=== PATIENT | male | born 1955 | race Caucasian/White ===

== ENCOUNTER 2017-01-12 11:24 | Emergency (ER) | payer MEDICAID ==
[~2017-01-12] VITALS: Ht 175.3 cm; Wt 60.0 kg
[~2017-01-12 11:24] MED LIST: CLON-365 PO; CLON2TAB16 PO; ENAL10TA PO; GABA800T2 PO; METO-99 PO; NICO1PAT4 TD
[2017-01-12] MEDS ORDERED: SODIUM CHLORIDE FLUSH 10ML SYR IVF ONE (12:00)
[2017-01-12] MEDS ORDERED: SODIUM CHLORIDE 0.9% 1,000ML IVBOLUS ONE (12:00)
[2017-01-12] MEDS ORDERED: LORazepam 2 MG/ML, 1ML IVPush ONE (12:00)
[2017-01-12 12:44] VITALS: BP 125/68
== END 2017-01-12 12:47 | disposition home or self-care (01) ==
LOC: ED 12:35
DX: K40.90 Unilateral inguinal hernia, without obstruction or gangrene, not specified as recurrent (principal); I10 Essential (primary) hypertension; F31.9 Bipolar disorder, unspecified; F41.9 Anxiety disorder, unspecified
CPT/HCPCS: 99283

== ENCOUNTER 2017-02-18 10:38 | Emergency (ER) | payer MEDICAID ==
[2017-02-18] MEDS ORDERED: ASPIRIN 81 MG TABLET CHEW PO ONE (11:30)
[2017-02-18] MEDS ORDERED: ASPIRIN 81 MG TABLET CHEW ONE (11:32)
[2017-02-18 12:12] LABS: BLOOD UREA NITROGEN 19 mg/dL (7-18)
[2017-02-18 12:16] LABS: IS PT STATUS REG ER OR PRE ER? YES
[2017-02-18 12:28] VITALS: BP 144/88
== END 2017-02-18 13:14 | disposition home or self-care (01) ==
LOC: ED 12:19
DX: R07.89 Other chest pain (principal); F41.1 Generalized anxiety disorder; M25.512 Pain in left shoulder; G89.29 Other chronic pain; I10 Essential (primary) hypertension; N19 Unspecified kidney failure; K75.9 Inflammatory liver disease, unspecified
CPT/HCPCS: 36415; 71010; 80048; 82040; 84484; 85025; 93005; 99285

== ENCOUNTER 2017-02-27 22:53 | Emergency (ER) | payer MEDICAID ==
[~2017-02-27] VITALS: Ht 175.3 cm; Wt 58.8 kg
[2017-02-27 23:51] LABS: HEMATOCRIT 38.5 % (39.2-51.8); HEMOGLOBIN 12.9 g/dL (13.7-18.0); WHITE BLOOD COUNT 8.2 x10^3/uL (3.4-10)
[2017-02-28 00:01] LABS: BLOOD UREA NITROGEN 21 mg/dL (7-18)
[2017-02-28] MEDS ORDERED: IBUPROFEN 200 MG TABLET PO ONE (02:00)
[2017-02-28] MEDS ORDERED: IBUPROFEN 200 MG TABLET ONE (02:03)
[2017-02-28 02:23] VITALS: BP 129/87
== END 2017-02-28 02:24 | disposition home or self-care (01) ==
LOC: ED 23:10
DX: S70.02XA Contusion of left hip, initial encounter (principal); I10 Essential (primary) hypertension; M25.512 Pain in left shoulder; G89.29 Other chronic pain; F15.10 Other stimulant abuse, uncomplicated; Z59.0 Homelessness; W01.0XXA Fall on same level from slipping, tripping and stumbling without subsequent striking against object, initial encounter; Y93.89 Activity, other specified; Y99.8 Other external cause status; Y92.89 Other specified places as the place of occurrence of the external cause
CPT/HCPCS: 36415; 70450; 71010; 72125; 80048; 80307; 82040; 82140; 85025; 99285

== ENCOUNTER 2017-03-02 10:01 | Emergency (ER) | payer MEDICAID ==
[~2017-03-02] VITALS: Ht 175.3 cm; Wt 58.2 kg
[2017-03-02 10:02] VITALS: BP 149/79
[2017-03-02 10:54] LABS: HEMATOCRIT 44.4 % (39.2-51.8); HEMOGLOBIN 14.9 g/dL (13.7-18.0); WHITE BLOOD COUNT 7.4 x10^3/uL (3.4-10)
[2017-03-02 11:04] LABS: BLOOD UREA NITROGEN 19 mg/dL (7-18)
[2017-03-02] MEDS ORDERED: NAPR500T PO (11:11)
== END 2017-03-02 11:18 | disposition home or self-care (01) ==
LOC: ED 11:12
DX: T63.301A Toxic effect of unspecified spider venom, accidental (unintentional), initial encounter (principal); L03.90 Cellulitis, unspecified; S50.812A Abrasion of left forearm, initial encounter; S50.811A Abrasion of right forearm, initial encounter; S80.212A Abrasion, left knee, initial encounter; S80.211A Abrasion, right knee, initial encounter; I10 Essential (primary) hypertension; G89.29 Other chronic pain; M54.2 Cervicalgia; M54.5 Low back pain; Y92.89 Other specified places as the place of occurrence of the external cause; Y99.8 Other external cause status; Y93.89 Activity, other specified
CPT/HCPCS: 36415; 80048; 82040; 85025; 99284

== ENCOUNTER 2017-03-25 08:49 | Emergency (ER) | payer MEDICAID ==
[~2017-03-25] VITALS: Ht 175.3 cm; Wt 59.0 kg
[~2017-03-25 08:49] MED LIST changes: +NAPR500T PO; +NICO1PAT13 TD; -NICO1PAT4 TD
[2017-03-25] MEDS ORDERED: DIPH,PERTUSS(ACELL),TET VAC/PF 0.5 ML IM-VACC ONE ×2 (09:30→10:05)
[2017-03-25] MEDS ORDERED: CEFAZOLIN PMX 1GM/50ML 50 ML IVPB ONE (09:30)
[2017-03-25] MEDS ORDERED: KETOROLAC 30 MG/1 ML IVPush ONE (09:30)
[2017-03-25] MEDS ORDERED: SODIUM CHLORIDE 0.9% 1,000ML IVBOLUS ONE (09:30)
[2017-03-25] MEDS ORDERED: SODIUM CHLORIDE FLUSH 10ML SYR IVF ONE (09:30)
[2017-03-25] MEDS ORDERED: KETOROLAC 30 MG/1 ML ONE (10:05)
[2017-03-25] MEDS ORDERED: CEFAZOLIN PMX 1GM/50ML 50 ML ONE (10:05)
[2017-03-25 11:54] VITALS: BP 109/71
== END 2017-03-25 12:05 | disposition home or self-care (01) ==
LOC: ED 09:21
DX: L03.115 Cellulitis of right lower limb (principal); L03.116 Cellulitis of left lower limb; F41.9 Anxiety disorder, unspecified; F31.9 Bipolar disorder, unspecified; I10 Essential (primary) hypertension; Z88.1 Allergy status to other antibiotic agents; Z88.2 Allergy status to sulfonamides; X58.XXXA Exposure to other specified factors, initial encounter; Y93.01 Activity, walking, marching and hiking; Y92.488 Other paved roadways as the place of occurrence of the external cause; Y99.8 Other external cause status
CPT/HCPCS: 90471; 90715; 96365; 96375; 99284; J0690; J1885; J7030; 96372

== ENCOUNTER 2017-04-06 09:31 | Emergency (ER) | payer MEDICAID ==
[~2017-04-06] VITALS: Ht 175.3 cm; Wt 61.5 kg
[2017-04-06] MEDS ORDERED: FAMOTIDINE 20 MG/2 ML IVP ONE (11:30)
[2017-04-06] MEDS ORDERED: SODIUM CHLORIDE FLUSH 10ML SYR IVF ONE (11:30)
[2017-04-06] MEDS ORDERED: MAALOX/HYOSCYAMINE/LIDOCAINE 45 ML BTL PO ONE (11:30)
[2017-04-06] MEDS ORDERED: MAALOX/HYOSCYAMINE/LIDOCAINE 45 ML BTL ONE (11:40)
[2017-04-06] MEDS ORDERED: FAMOTIDINE 20 MG/2 ML ONE (11:40)
[2017-04-06 12:06] LABS: HEMATOCRIT 38.1 % (39.2-51.8); HEMOGLOBIN 12.9 g/dL (13.7-18.0); WHITE BLOOD COUNT 10.5 x10^3/uL (3.4-10)
[2017-04-06 12:15] LABS: ASPARTATE AMINO TRANSFERASE 26 U/L (15-37); BLOOD UREA NITROGEN 17 mg/dL (7-18)
[2017-04-06 13:43] VITALS: BP 142/82
== END 2017-04-06 14:49 | disposition left against medical advice (07) ==
LOC: ED 10:17
DX: R10.13 Epigastric pain (principal); G89.29 Other chronic pain; M54.5 Low back pain; N19 Unspecified kidney failure; I10 Essential (primary) hypertension
CPT/HCPCS: 36415; 71010; 76700; 80053; 81003; 83690; 85025; 93005; 96374; S0028

== ENCOUNTER 2017-04-12 14:03 | Emergency (ER) | payer MEDICAID ==
[~2017-04-12] VITALS: Ht 175.3 cm; Wt 65.0 kg
[~2017-04-12 14:03] MED LIST changes: +NICO-486 TD; -NICO1PAT13 TD
[2017-04-12] MEDS ORDERED: GABA300C10 PO (14:25)
[2017-04-12 15:16] LABS: HEMOGLOBIN 11.7 g/dL (13.7-18.0); WHITE BLOOD COUNT 8.8 x10^3/uL (3.4-10)
[2017-04-12 15:23] LABS: BLOOD UREA NITROGEN 24 mg/dL (7-18)
[2017-04-12 15:34] LABS: IS PT STATUS REG ER OR PRE ER? YES
[2017-04-12] MEDS ORDERED: OMNIPAQUE 350 MG/ML, 100ML BOTTLE ONE (17:03)
[2017-04-12 17:56] VITALS: BP 149/83
== END 2017-04-12 17:59 | disposition home or self-care (01) ==
LOC: ED 17:53
DX: R60.0 Localized edema (principal); K21.9 Gastro-esophageal reflux disease without esophagitis; I10 Essential (primary) hypertension; M54.2 Cervicalgia; M54.5 Low back pain; G89.29 Other chronic pain; Z59.0 Homelessness
CPT/HCPCS: 36415; 71010; 71275; 80048; 82040; 84484; 85025; 93005; 93970; 99285; Q9967

== ENCOUNTER 2017-05-03 | Inpatient (IN) | payer MEDICAID ==
[~2017-05-03] VITALS: Ht 175.3 cm; Wt 67.3 kg
[~2017-05-03] MED LIST changes: +GABA300C10 PO
[2017-05-03 00:33] LABS: HEMATOCRIT 35.7 % (39.2-51.8); HEMOGLOBIN 12.1 g/dL (13.7-18.0); WHITE BLOOD COUNT 21.9 x10^3/uL (3.4-10)
[2017-05-03 00:45] LABS: BLOOD UREA NITROGEN 18 mg/dL (7-18)
[2017-05-03 00:48] LABS: IS PT STATUS REG ER OR PRE ER? YES
[2017-05-03] MEDS ORDERED: SODIUM CHLORIDE 0.9% 1,000ML IVBOLUS ONE ×2 (01:00→03:00)
[2017-05-03] MEDS ORDERED: SODIUM CHLORIDE FLUSH 10ML SYR IVF ONE (01:00)
[2017-05-03] MEDS ORDERED: KETOROLAC 30 MG/1 ML IVPush ONE (02:00)
[2017-05-03] MEDS ORDERED: KETOROLAC 30 MG/1 ML ONE (02:01)
[2017-05-03] MEDS ORDERED: OMNIPAQUE 350 MG/ML, 100ML BOTTLE ONE (02:05)
[2017-05-03 02:33] LABS: DAU SCREEN DISCLAIMER
[2017-05-03] MEDS ORDERED: AMPICILLIN/SULBACTAM 3 GM in SODIUM CHLORIDE 0.9% 100 ML IV ONE (03:00)
[2017-05-03] MEDS ORDERED: VANCOMYCIN PER PHARMACY IV ONE (03:00)
[2017-05-03] MEDS ORDERED: VANCOMYCIN 1,300 MG in SODIUM CHLORIDE 0.9% 250 ML IV ONE (03:00)
[2017-05-03] MEDS ORDERED: VANCOMYCIN PER PHARMACY MC PRN (03:30)
[2017-05-03] MEDS ORDERED: ONDANSETRON 2MG/ML, 2ML IVPush PRN (03:30)
[2017-05-03] MEDS ORDERED: hydrALAzine 20 MG/ML, 1ML IVPush PRN (03:30)
[2017-05-03] MEDS ORDERED: TRAZODONE 50MG TABLET PO PRN (03:30)
[2017-05-03] MEDS ORDERED: ACETAMINOPHEN 325 MG TABLET PO PRN (03:30)
[2017-05-03] MEDS ORDERED: DEXTROSE 50%, 50ML SYRINGE IVPush PRN (03:30)
[2017-05-03] MEDS ORDERED: DEXTROSE 4 GM TAB.CHEW PO PRN (03:30)
[2017-05-03] MEDS ORDERED: GLUCAGON 1 MG IM PRN (03:30)
[2017-05-03 04:26] VITALS: BP 161/95
[2017-05-03] MEDS ORDERED: FLU VACC QS2017-18 (36MOS+) UP/PF 0.5 ML IM-VACC ONE (05:00)
[2017-05-03] MEDS ORDERED: PNEUMOCOCCAL 23 VACCINE IM-VACC ONE (05:00)
[2017-05-03] MEDS: SODIUM CHLORIDE 0.9% 1,000 ML IV SCH ×2 (05:00→20:53)
[2017-05-03] MEDS: TAMSULOSIN 0.4 MG CAP.ER.24H PO SCH ×2 (05:02→08:59)
[2017-05-03] MEDS: ENOXAPARIN 40 MG/0.4 ML SQ SCH (05:05)
[2017-05-03] MEDS: NICOTINE 21 MG/24 HR PATCH.TD24 TD SCH (06:18)
[2017-05-03] MEDS ORDERED: PHARMACOKINETIC MONITORING MC PRN (07:00)
[2017-05-03] MEDS ORDERED: PHARMACOKINETIC CONSULTATION MC ONE (07:00)
[2017-05-03] MEDS: INSULIN ASPART 100 UNITS/ML, PEN SQ-INSULIN SCH ×4 (07:00→20:54)
[2017-05-03] MEDS: SODIUM CHLORIDE FLUSH 10ML SYR IVF SCH ×2 (08:59→20:54)
[2017-05-03] MEDS: AMPICILLIN/SULBACTAM 1,500 MG in SODIUM CHLORIDE 0.9% 50 ML IV SCH ×3 (09:03→20:51)
[2017-05-03 09:09] VITALS: BP 143/91
[2017-05-03] MEDS: OXYcodone IR 5MG TABLET PO PRN ×3 (12:01→20:54)
[2017-05-03 13:47] VITALS: BP 127/79
[2017-05-03] MEDS ORDERED: SODIUM CHLORIDE 0.9%, 500ML IVBOLUS ONE (14:00)
[2017-05-03 15:40] VITALS: BP 153/93
[2017-05-03] MEDS: morphine SULFATE 10 MG/ML, 1ML IVPush PRN (16:56)
[2017-05-03 18:35] VITALS: BP 142/78
[2017-05-03] MEDS: VANCOMYCIN 1,200 MG in SODIUM CHLORIDE 0.9% 250 ML IV SCH (22:33)
[2017-05-04] MEDS: morphine SULFATE 10 MG/ML, 1ML IVPush PRN ×7 (01:48→21:47)
[2017-05-04 01:52] VITALS: BP 149/77
[2017-05-04] MEDS: AMPICILLIN/SULBACTAM 1,500 MG in SODIUM CHLORIDE 0.9% 50 ML IV SCH ×4 (02:44→21:11)
[2017-05-04] MEDS: ENOXAPARIN 40 MG/0.4 ML SQ SCH (02:44)
[2017-05-04] MEDS: OXYcodone IR 5MG TABLET PO PRN ×4 (03:58→22:58)
[2017-05-04 06:14] LABS: HEMATOCRIT 31.7 % (39.2-51.8); HEMOGLOBIN 10.8 g/dL (13.7-18.0); WHITE BLOOD COUNT 12.1 x10^3/uL (3.4-10)
[2017-05-04] MEDS: SODIUM CHLORIDE 0.9% 1,000 ML IV SCH ×2 (06:15→15:36)
[2017-05-04] MEDS: NICOTINE 21 MG/24 HR PATCH.TD24 TD SCH (06:15)
[2017-05-04 06:22] LABS: BLOOD UREA NITROGEN 16 mg/dL (7-18)
[2017-05-04] MEDS: INSULIN ASPART 100 UNITS/ML, PEN SQ-INSULIN SCH ×4 (07:00→21:00)
[2017-05-04] MEDS: SODIUM CHLORIDE FLUSH 10ML SYR IVF SCH ×2 (07:45→21:09)
[2017-05-04 08:10] VITALS: BP 160/91
[2017-05-04] MEDS: TAMSULOSIN 0.4 MG CAP.ER.24H PO SCH (09:31)
[2017-05-04 15:26] VITALS: BP 96/57
[2017-05-04 15:30] VITALS: BP 156/98
[2017-05-04] MEDS: VANCOMYCIN 1,200 MG in SODIUM CHLORIDE 0.9% 250 ML IV SCH (16:16)
[2017-05-04 17:59] LABS: HEMATOCRIT 34.4 % (39.2-51.8); HEMOGLOBIN 11.6 g/dL (13.7-18.0); WHITE BLOOD COUNT 11.7 x10^3/uL (3.4-10)
[2017-05-04 18:08] LABS: BLOOD UREA NITROGEN 18 mg/dL (7-18)
[2017-05-04 20:12] VITALS: BP 159/88
[2017-05-05 00:31] VITALS: BP 143/84
[2017-05-05] MEDS: morphine SULFATE 10 MG/ML, 1ML IVPush PRN ×5 (01:19→16:46)
[2017-05-05] MEDS: AMPICILLIN/SULBACTAM 1,500 MG in SODIUM CHLORIDE 0.9% 50 ML IV SCH ×4 (04:15→23:19)
[2017-05-05] MEDS: SODIUM CHLORIDE 0.9% 1,000 ML IV SCH ×2 (04:20→23:26)
[2017-05-05] MEDS: ENOXAPARIN 40 MG/0.4 ML SQ SCH (04:23)
[2017-05-05] MEDS: NICOTINE 21 MG/24 HR PATCH.TD24 TD SCH (05:32)
[2017-05-05 06:05] LABS: HEMATOCRIT 34.1 % (39.2-51.8); HEMOGLOBIN 11.5 g/dL (13.7-18.0); WHITE BLOOD COUNT 11.3 x10^3/uL (3.4-10)
[2017-05-05] MEDS: OXYcodone IR 5MG TABLET PO PRN ×3 (06:07→23:25)
[2017-05-05 06:16] LABS: BLOOD UREA NITROGEN 16 mg/dL (7-18)
[2017-05-05] MEDS: INSULIN ASPART 100 UNITS/ML, PEN SQ-INSULIN SCH ×4 (07:00→21:00)
[2017-05-05 08:09] VITALS: BP 142/84
[2017-05-05] MEDS: LISINOPRIL 10 MG TABLET PO SCH (08:36)
[2017-05-05] MEDS: TAMSULOSIN 0.4 MG CAP.ER.24H PO SCH (08:36)
[2017-05-05] MEDS: SODIUM CHLORIDE FLUSH 10ML SYR IVF SCH ×2 (08:37→21:00)
[2017-05-05] MEDS: VANCOMYCIN 1,200 MG in SODIUM CHLORIDE 0.9% 250 ML IV SCH (10:19)
[2017-05-05 14:47] VITALS: BP 116/83
[2017-05-05] MEDS: QUETIAPINE 25MG TABLET PO SCH ×2 (16:45→23:01)
[2017-05-05 19:34] VITALS: BP 131/84
[2017-05-06 00:04] VITALS: BP 144/94
[2017-05-06] MEDS: morphine SULFATE 10 MG/ML, 1ML IVPush PRN ×7 (01:38→23:43)
[2017-05-06] MEDS: AMPICILLIN/SULBACTAM 1,500 MG in SODIUM CHLORIDE 0.9% 50 ML IV SCH ×4 (05:12→23:43)
[2017-05-06] MEDS: VANCOMYCIN 1,200 MG in SODIUM CHLORIDE 0.9% 250 ML IV SCH (05:58)
[2017-05-06] MEDS: NICOTINE 21 MG/24 HR PATCH.TD24 TD SCH (05:59)
[2017-05-06] MEDS: INSULIN ASPART 100 UNITS/ML, PEN SQ-INSULIN SCH ×4 (07:00→20:35)
[2017-05-06] MEDS: ENOXAPARIN 40 MG/0.4 ML SQ SCH (07:26)
[2017-05-06] MEDS: LISINOPRIL 10 MG TABLET PO SCH (07:27)
[2017-05-06] MEDS: OXYcodone IR 5MG TABLET PO PRN ×3 (07:27→23:43)
[2017-05-06] MEDS: SODIUM CHLORIDE FLUSH 10ML SYR IVF SCH ×2 (07:27→20:35)
[2017-05-06] MEDS: QUETIAPINE 25MG TABLET PO SCH ×2 (07:27→20:35)
[2017-05-06] MEDS: TAMSULOSIN 0.4 MG CAP.ER.24H PO SCH (07:27)
[2017-05-06 07:57] VITALS: BP 124/82
[2017-05-06] MEDS: SODIUM CHLORIDE 0.9% 1,000 ML IV SCH ×2 (10:38→23:13)
[2017-05-06 13:37] VITALS: BP 130/87
[2017-05-06] MEDS: VANCOMYCIN 1,300 MG in SODIUM CHLORIDE 0.9% 250 ML IV SCH (18:25)
[2017-05-06 18:55] VITALS: BP 123/88
[2017-05-07 01:22] VITALS: BP 143/98
[2017-05-07] MEDS: morphine SULFATE 10 MG/ML, 1ML IVPush PRN ×7 (03:17→22:51)
[2017-05-07] MEDS: OXYcodone IR 5MG TABLET PO PRN ×3 (06:16→22:51)
[2017-05-07] MEDS: AMPICILLIN/SULBACTAM 1,500 MG in SODIUM CHLORIDE 0.9% 50 ML IV SCH ×2 (06:17→12:05)
[2017-05-07] MEDS: INSULIN ASPART 100 UNITS/ML, PEN SQ-INSULIN SCH ×4 (07:00→21:00)
[2017-05-07 07:19] VITALS: BP 133/91
[2017-05-07] MEDS: ENOXAPARIN 40 MG/0.4 ML SQ SCH (08:40)
[2017-05-07] MEDS: NICOTINE 21 MG/24 HR PATCH.TD24 TD SCH (08:41)
[2017-05-07] MEDS: LISINOPRIL 10 MG TABLET PO SCH (08:41)
[2017-05-07] MEDS: TAMSULOSIN 0.4 MG CAP.ER.24H PO SCH (08:41)
[2017-05-07] MEDS: SODIUM CHLORIDE 0.9% 1,000 ML IV SCH ×2 (08:43→16:09)
[2017-05-07] MEDS: QUETIAPINE 25MG TABLET PO SCH ×2 (08:44→22:51)
[2017-05-07] MEDS: SODIUM CHLORIDE FLUSH 10ML SYR IVF SCH ×2 (08:52→22:51)
[2017-05-07 12:52] VITALS: BP 127/82
[2017-05-07] MEDS: VANCOMYCIN 1,300 MG in SODIUM CHLORIDE 0.9% 250 ML IV SCH (14:06)
[2017-05-07] MEDS ORDERED: FUROSEMIDE 20 MG/2 ML IV ONE (15:00)
[2017-05-07] MEDS: AMPICILLIN/SULBACTAM 3 GM in SODIUM CHLORIDE 0.9% 100 ML IV SCH ×2 (16:09→22:50)
[2017-05-07] MEDS: LACTOBACILLUS CHEW TABLET PO SCH ×2 (17:07→22:51)
[2017-05-07 20:04] VITALS: BP 139/90
[2017-05-07] MEDS ORDERED: TRAZODONE 50MG TABLET PO PRN (20:30)
[2017-05-07] MEDS ORDERED: DEXTROSE 50%, 50ML SYRINGE IVPush PRN (20:30)
[2017-05-07] MEDS ORDERED: ONDANSETRON 2MG/ML, 2ML IVPush PRN (20:30)
[2017-05-07] MEDS ORDERED: PHARMACOKINETIC MONITORING MC PRN (20:30)
[2017-05-07] MEDS ORDERED: DEXTROSE 4 GM TAB.CHEW PO PRN (20:30)
[2017-05-07] MEDS ORDERED: VANCOMYCIN PER PHARMACY MC PRN (20:30)
[2017-05-07] MEDS ORDERED: hydrALAzine 20 MG/ML, 1ML IVPush PRN (20:30)
[2017-05-07] MEDS ORDERED: GLUCAGON 1 MG IM PRN (20:30)
[2017-05-07] MEDS ORDERED: ACETAMINOPHEN 325 MG TABLET PO PRN (20:30)
[2017-05-08] MEDS: morphine SULFATE 10 MG/ML, 1ML IVPush PRN ×7 (02:17→23:42)
[2017-05-08 02:18] VITALS: BP 131/99
[2017-05-08] MEDS: OXYcodone IR 5MG TABLET PO PRN ×3 (05:44→20:59)
[2017-05-08] MEDS: AMPICILLIN/SULBACTAM 3 GM in SODIUM CHLORIDE 0.9% 100 ML IV SCH ×4 (05:44→23:41)
[2017-05-08] MEDS: INSULIN ASPART 100 UNITS/ML, PEN SQ-INSULIN SCH ×2 (07:00→11:00)
[2017-05-08 08:36] VITALS: BP 127/92
[2017-05-08] MEDS: SODIUM CHLORIDE 0.9% 1,000 ML IV SCH ×2 (08:46→20:10)
[2017-05-08] MEDS: VANCOMYCIN 1,300 MG in SODIUM CHLORIDE 0.9% 250 ML IV SCH (08:47)
[2017-05-08] MEDS: TAMSULOSIN 0.4 MG CAP.ER.24H PO SCH (08:47)
[2017-05-08] MEDS: LACTOBACILLUS CHEW TABLET PO SCH ×3 (08:47→20:10)
[2017-05-08] MEDS: SODIUM CHLORIDE FLUSH 10ML SYR IVF SCH ×2 (08:47→20:11)
[2017-05-08] MEDS: ENOXAPARIN 40 MG/0.4 ML SQ SCH (08:47)
[2017-05-08] MEDS: QUETIAPINE 25MG TABLET PO SCH ×2 (08:48→23:42)
[2017-05-08] MEDS: LISINOPRIL 10 MG TABLET PO SCH (08:48)
[2017-05-08] MEDS: NICOTINE 21 MG/24 HR PATCH.TD24 TD SCH (08:49)
[2017-05-08 13:13] VITALS: BP 124/83
[2017-05-08] MEDS ORDERED: FUROSEMIDE 20 MG/2 ML IV ONE (15:30)
[2017-05-08] MEDS: IBUPROFEN 200 MG TABLET PO PRN (16:11)
[2017-05-08 20:00] VITALS: BP 126/88
[2017-05-09 02:00] VITALS: BP 133/78
[2017-05-09] MEDS: VANCOMYCIN 1,300 MG in SODIUM CHLORIDE 0.9% 250 ML IV SCH ×2 (03:25→22:53)
[2017-05-09] MEDS: AMPICILLIN/SULBACTAM 3 GM in SODIUM CHLORIDE 0.9% 100 ML IV SCH ×3 (06:23→18:35)
[2017-05-09] MEDS: IBUPROFEN 200 MG TABLET PO PRN ×2 (06:23→22:53)
[2017-05-09] MEDS: SODIUM CHLORIDE 0.9% 1,000 ML IV SCH ×3 (06:23→22:53)
[2017-05-09] MEDS: morphine SULFATE 10 MG/ML, 1ML IVPush PRN ×5 (06:24→19:30)
[2017-05-09 07:20] VITALS: BP 124/84
[2017-05-09] MEDS: ENOXAPARIN 40 MG/0.4 ML SQ SCH (08:04)
[2017-05-09] MEDS: LISINOPRIL 10 MG TABLET PO SCH (08:04)
[2017-05-09] MEDS: LACTOBACILLUS CHEW TABLET PO SCH ×3 (08:04→22:55)
[2017-05-09] MEDS: TAMSULOSIN 0.4 MG CAP.ER.24H PO SCH (08:04)
[2017-05-09] MEDS: OXYcodone IR 5MG TABLET PO PRN ×3 (08:05→22:53)
[2017-05-09] MEDS: QUETIAPINE 25MG TABLET PO SCH ×2 (08:05→08:24)
[2017-05-09] MEDS: NICOTINE 21 MG/24 HR PATCH.TD24 TD SCH (08:06)
[2017-05-09] MEDS: SODIUM CHLORIDE FLUSH 10ML SYR IVF SCH ×2 (08:08→21:00)
[2017-05-09 09:46] LABS: HEMATOCRIT 26.7 % (39.2-51.8); HEMOGLOBIN 9.1 g/dL (13.7-18.0); WHITE BLOOD COUNT 7.7 x10^3/uL (3.4-10)
[2017-05-09 09:50] LABS: BLOOD UREA NITROGEN 24 mg/dL (7-18)
[2017-05-09 13:29] VITALS: BP 132/81
[2017-05-09 19:25] VITALS: BP 123/79
[2017-05-10] MEDS: QUETIAPINE 25MG TABLET PO SCH ×3 (01:15→23:35)
[2017-05-10] MEDS: AMPICILLIN/SULBACTAM 3 GM in SODIUM CHLORIDE 0.9% 100 ML IV SCH ×4 (01:15→21:25)
[2017-05-10] MEDS: morphine SULFATE 10 MG/ML, 1ML IVPush PRN ×6 (01:16→20:44)
[2017-05-10 01:21] VITALS: BP 129/78
[2017-05-10] MEDS: IBUPROFEN 200 MG TABLET PO PRN ×2 (05:36→16:13)
[2017-05-10] MEDS: SODIUM CHLORIDE 0.9% 1,000 ML IV SCH ×3 (05:37→21:30)
[2017-05-10 07:59] VITALS: BP 123/82
[2017-05-10] MEDS: ENOXAPARIN 40 MG/0.4 ML SQ SCH (08:47)
[2017-05-10] MEDS: TAMSULOSIN 0.4 MG CAP.ER.24H PO SCH (08:47)
[2017-05-10] MEDS: LACTOBACILLUS CHEW TABLET PO SCH ×3 (08:47→21:28)
[2017-05-10] MEDS: NICOTINE 21 MG/24 HR PATCH.TD24 TD SCH (08:48)
[2017-05-10] MEDS: LISINOPRIL 10 MG TABLET PO SCH (08:48)
[2017-05-10] MEDS: SODIUM CHLORIDE FLUSH 10ML SYR IVF SCH ×2 (08:53→21:27)
[2017-05-10] MEDS: OXYcodone IR 5MG TABLET PO PRN ×2 (10:37→16:45)
[2017-05-10 13:59] VITALS: BP 130/88
[2017-05-10] MEDS: VANCOMYCIN 1,300 MG in SODIUM CHLORIDE 0.9% 250 ML IV SCH (17:19)
[2017-05-10 18:53] VITALS: BP 134/92
[2017-05-11] MEDS: morphine SULFATE 10 MG/ML, 1ML IVPush PRN ×7 (00:04→23:30)
[2017-05-11 02:42] VITALS: BP 136/86
[2017-05-11] MEDS: AMPICILLIN/SULBACTAM 3 GM in SODIUM CHLORIDE 0.9% 100 ML IV SCH ×4 (02:57→21:48)
[2017-05-11] MEDS: OXYcodone IR 5MG TABLET PO PRN ×3 (05:56→21:56)
[2017-05-11 07:34] VITALS: BP 138/89
[2017-05-11] MEDS: ENOXAPARIN 40 MG/0.4 ML SQ SCH (08:09)
[2017-05-11] MEDS: QUETIAPINE 25MG TABLET PO SCH ×2 (09:00→23:41)
[2017-05-11] MEDS: SODIUM CHLORIDE 0.9% 1,000 ML IV SCH ×2 (10:01→19:57)
[2017-05-11] MEDS: TAMSULOSIN 0.4 MG CAP.ER.24H PO SCH (10:02)
[2017-05-11] MEDS: IBUPROFEN 200 MG TABLET PO PRN (10:04)
[2017-05-11] MEDS: LACTOBACILLUS CHEW TABLET PO SCH ×3 (10:04→21:56)
[2017-05-11] MEDS: NICOTINE 21 MG/24 HR PATCH.TD24 TD SCH (10:04)
[2017-05-11] MEDS: LISINOPRIL 10 MG TABLET PO SCH (10:04)
[2017-05-11] MEDS: SODIUM CHLORIDE FLUSH 10ML SYR IVF SCH ×2 (10:05→21:48)
[2017-05-11 12:48] VITALS: BP 131/83
[2017-05-11] MEDS: VANCOMYCIN 1,300 MG in SODIUM CHLORIDE 0.9% 250 ML IV SCH (13:42)
[2017-05-11 18:59] VITALS: BP 133/97
[2017-05-12 01:58] VITALS: BP 155/97
[2017-05-12] MEDS: morphine SULFATE 10 MG/ML, 1ML IVPush PRN ×6 (02:37→21:23)
[2017-05-12] MEDS: AMPICILLIN/SULBACTAM 3 GM in SODIUM CHLORIDE 0.9% 100 ML IV SCH ×4 (03:27→21:14)
[2017-05-12] MEDS: SODIUM CHLORIDE 0.9% 1,000 ML IV SCH ×3 (03:29→18:17)
[2017-05-12] MEDS: OXYcodone IR 5MG TABLET PO PRN ×4 (04:38→22:25)
[2017-05-12] MEDS: VANCOMYCIN 1,300 MG in SODIUM CHLORIDE 0.9% 250 ML IV SCH (07:22)
[2017-05-12] MEDS: SODIUM CHLORIDE FLUSH 10ML SYR IVF SCH ×2 (07:30→21:14)
[2017-05-12] MEDS: LACTOBACILLUS CHEW TABLET PO SCH ×3 (07:30→21:14)
[2017-05-12] MEDS: ENOXAPARIN 40 MG/0.4 ML SQ SCH (07:30)
[2017-05-12] MEDS: TAMSULOSIN 0.4 MG CAP.ER.24H PO SCH (07:30)
[2017-05-12] MEDS: NICOTINE 21 MG/24 HR PATCH.TD24 TD SCH (07:31)
[2017-05-12] MEDS: QUETIAPINE 25MG TABLET PO SCH ×3 (07:31→23:52)
[2017-05-12] MEDS: LISINOPRIL 10 MG TABLET PO SCH (07:31)
[2017-05-12 07:33] VITALS: BP 148/88
[2017-05-12 14:16] VITALS: BP 125/83
[2017-05-12 19:45] VITALS: BP 149/98
[2017-05-13 00:25] VITALS: BP 146/95
[2017-05-13] MEDS: morphine SULFATE 10 MG/ML, 1ML IVPush PRN ×5 (00:46→16:10)
[2017-05-13] MEDS: VANCOMYCIN 1,300 MG in SODIUM CHLORIDE 0.9% 250 ML IV SCH ×2 (00:47→19:22)
[2017-05-13] MEDS: SODIUM CHLORIDE 0.9% 1,000 ML IV SCH ×2 (03:40→11:00)
[2017-05-13] MEDS: AMPICILLIN/SULBACTAM 3 GM in SODIUM CHLORIDE 0.9% 100 ML IV SCH ×4 (03:40→21:24)
[2017-05-13] MEDS: OXYcodone IR 5MG TABLET PO PRN ×3 (04:41→17:20)
[2017-05-13 05:56] LABS: HEMATOCRIT 26.7 % (39.2-51.8); HEMOGLOBIN 9.1 g/dL (13.7-18.0); WHITE BLOOD COUNT 9.1 x10^3/uL (3.4-10)
[2017-05-13 06:00] LABS: BLOOD UREA NITROGEN 13 mg/dL (7-18)
[2017-05-13] MEDS: SODIUM CHLORIDE FLUSH 10ML SYR IVF SCH ×2 (07:21→21:27)
[2017-05-13 08:30] VITALS: BP 135/85
[2017-05-13] MEDS: QUETIAPINE 25MG TABLET PO SCH ×3 (09:00→21:23)
[2017-05-13] MEDS: LACTOBACILLUS CHEW TABLET PO SCH ×3 (09:10→21:23)
[2017-05-13] MEDS: TAMSULOSIN 0.4 MG CAP.ER.24H PO SCH (09:10)
[2017-05-13] MEDS: ENOXAPARIN 40 MG/0.4 ML SQ SCH (09:10)
[2017-05-13] MEDS: LISINOPRIL 10 MG TABLET PO SCH (09:10)
[2017-05-13] MEDS: NICOTINE 21 MG/24 HR PATCH.TD24 TD SCH (09:11)
[2017-05-13 14:00] VITALS: BP 142/93
[2017-05-13 19:03] VITALS: BP 134/89
[2017-05-13] MEDS: IBUPROFEN 200 MG TABLET PO PRN (19:33)
[2017-05-14 01:26] VITALS: BP 138/74
[2017-05-14] MEDS: AMPICILLIN/SULBACTAM 3 GM in SODIUM CHLORIDE 0.9% 100 ML IV SCH ×2 (03:26→09:38)
[2017-05-14] MEDS: OXYcodone IR 5MG TABLET PO PRN ×2 (03:26→09:37)
[2017-05-14 07:15] VITALS: BP 132/85
[2017-05-14] MEDS: SODIUM CHLORIDE FLUSH 10ML SYR IVF SCH (08:50)
[2017-05-14] MEDS: QUETIAPINE 25MG TABLET PO SCH (08:51)
[2017-05-14] MEDS: TAMSULOSIN 0.4 MG CAP.ER.24H PO SCH (08:51)
[2017-05-14] MEDS: ENOXAPARIN 40 MG/0.4 ML SQ SCH (08:51)
[2017-05-14] MEDS: LACTOBACILLUS CHEW TABLET PO SCH (08:51)
[2017-05-14] MEDS: LISINOPRIL 10 MG TABLET PO SCH (08:51)
[2017-05-14] MEDS: NICOTINE 21 MG/24 HR PATCH.TD24 TD SCH (08:51)
[2017-05-14] MEDS ORDERED: TAMS-11 PO (10:51)
[2017-05-14] MEDS ORDERED: CLIN300C8 PO (10:51)
[2017-05-14] MEDS ORDERED: OXYC5TAB3 PO (10:51)
[2017-05-14] MEDS ORDERED: LISI-167 PO (10:51)
[2017-05-14] MEDS ORDERED: QUET25TA PO (10:51)
[2017-05-14] MEDS: VANCOMYCIN 1,300 MG in SODIUM CHLORIDE 0.9% 250 ML IV SCH (13:00)
[2017-05-14 14:26] VITALS: BP 147/93
== END 2017-05-14 16:07 | disposition home or self-care (01) | DRG 872 ==
LOC: ED 01:00 → EDIP 02:34 → SUATTDRO 02:48 → 3NE 04:09
PROVIDERS: ADMIT Hospitalist; ATTEND Family Medicine
DX: A41.9 Sepsis, unspecified organism (principal); E11.621 Type 2 diabetes mellitus with foot ulcer; L03.115 Cellulitis of right lower limb; L03.116 Cellulitis of left lower limb; R65.20 Severe sepsis without septic shock; F31.9 Bipolar disorder, unspecified; I10 Essential (primary) hypertension; M54.2 Cervicalgia; M54.9 Dorsalgia, unspecified; G89.29 Other chronic pain; F12.90 Cannabis use, unspecified, uncomplicated; F17.200 Nicotine dependence, unspecified, uncomplicated; L97.519 Non-pressure chronic ulcer of other part of right foot with unspecified severity; L97.529 Non-pressure chronic ulcer of other part of left foot with unspecified severity; K21.9 Gastro-esophageal reflux disease without esophagitis; B95.1 Streptococcus, group B, as the cause of diseases classified elsewhere; F41.9 Anxiety disorder, unspecified; R07.89 Other chest pain; K40.90 Unilateral inguinal hernia, without obstruction or gangrene, not specified as recurrent; N40.0 Benign prostatic hyperplasia without lower urinary tract symptoms; B18.2 Chronic viral hepatitis C; Z59.0 Homelessness; Z22.322 Carrier or suspected carrier of Methicillin resistant Staphylococcus aureus
CPT/HCPCS: 36415; 71010; 71275; 74177; 80048; 80202; 80307; 81003; 82040; 82962; 83605; 83735; 84100; 84145; 84484; 85025; 85651; 86141; 87040; 87070; 87077; 87147; 87186; 87205; 90686; 90732; 93005; 93970; 96361; 96365; J0295; J1650; J1815; J1885; J3370; Q9967; G0479; J1940; J2270; J7030; J7040; J7050

== ENCOUNTER 2017-05-15 16:04 | Emergency (ER) | payer MEDICAID ==
[~2017-05-15] VITALS: Ht 170.2 cm; Wt 60.8 kg
[~2017-05-15 16:04] MED LIST changes: +CLIN300C8 PO; +LISI-167 PO; +OXYC5TAB3 PO; +QUET25TA PO; +TAMS-11 PO
[2017-05-15] MEDS ORDERED: FAMOTIDINE 20 MG TABLET ONE (16:28)
[2017-05-15] MEDS ORDERED: DIPHENHYDRAMINE 50 MG CAPSULE ONE (16:28)
[2017-05-15] MEDS ORDERED: DIPHENHYDRAMINE 25 MG CAPSULE PO ONE (16:30)
[2017-05-15] MEDS ORDERED: FAMOTIDINE 20 MG TABLET PO ONE (16:30)
[2017-05-15 17:30] VITALS: BP 142/97
== END 2017-05-15 17:33 | disposition home or self-care (01) ==
LOC: ED 16:42
DX: L29.9 Pruritus, unspecified (principal); L50.9 Urticaria, unspecified; T40.2X5A Adverse effect of other opioids, initial encounter; I10 Essential (primary) hypertension; F31.9 Bipolar disorder, unspecified; K21.9 Gastro-esophageal reflux disease without esophagitis; Y92.89 Other specified places as the place of occurrence of the external cause
CPT/HCPCS: 99284; J7512; Q0163

== ENCOUNTER 2017-05-17 09:59 | Emergency (ER) | payer MEDICAID ==
[~2017-05-17] VITALS: Ht 175.3 cm; Wt 63.0 kg
[2017-05-17] MEDS ORDERED: DIPHENHYDRAMINE 25 MG CAPSULE ONE (10:58)
[2017-05-17] MEDS ORDERED: FAMOTIDINE 20 MG TABLET ONE (10:58)
[2017-05-17] MEDS ORDERED: FAMOTIDINE 20 MG TABLET PO ONE (11:00)
[2017-05-17] MEDS ORDERED: DIPHENHYDRAMINE 25 MG CAPSULE PO ONE (11:00)
[2017-05-17 11:15] LABS: HEMATOCRIT 35.2 % (39.2-51.8); HEMOGLOBIN 11.8 g/dL (13.7-18.0); WHITE BLOOD COUNT 8.1 x10^3/uL (3.4-10)
[2017-05-17 11:31] LABS: ASPARTATE AMINO TRANSFERASE 21 U/L (15-37); BLOOD UREA NITROGEN 18 mg/dL (7-18)
[2017-05-17 11:40] LABS: IS PT STATUS REG ER OR PRE ER? YES
[2017-05-17 12:37] VITALS: BP 152/96
== END 2017-05-17 13:16 | disposition home or self-care (01) ==
LOC: ED 10:18
DX: R21 Rash and other nonspecific skin eruption (principal); R07.9 Chest pain, unspecified; M54.5 Low back pain; G89.29 Other chronic pain; I10 Essential (primary) hypertension; K21.9 Gastro-esophageal reflux disease without esophagitis
CPT/HCPCS: 36415; 80053; 84484; 85025; 93005; 99285; J7512; Q0163

== ENCOUNTER 2017-05-18 08:54 | Emergency (ER) | payer MEDICAID ==
[~2017-05-18] VITALS: Ht 175.3 cm; Wt 63.0 kg
[2017-05-18 09:01] VITALS: BP 152/82
[2017-05-18] MEDS ORDERED: ASPIRIN 81 MG TABLET CHEW ONE (09:37)
[2017-05-18] MEDS ORDERED: ASPIRIN 81 MG TABLET CHEW PO ONE (10:00)
[2017-05-18 10:03] LABS: HEMATOCRIT 37.8 % (39.2-51.8); HEMOGLOBIN 12.3 g/dL (13.7-18.0); WHITE BLOOD COUNT 10.3 x10^3/uL (3.4-10)
[2017-05-18 10:11] LABS: BLOOD UREA NITROGEN 19 mg/dL (7-18)
[2017-05-18 10:15] LABS: IS PT STATUS REG ER OR PRE ER? YES
== END 2017-05-18 10:22 | disposition home or self-care (01) ==
LOC: ED 09:13
DX: R07.89 Other chest pain (principal); L50.0 Allergic urticaria; G89.29 Other chronic pain; I10 Essential (primary) hypertension; K21.9 Gastro-esophageal reflux disease without esophagitis; M54.5 Low back pain
CPT/HCPCS: 36415; 80048; 82040; 84484; 85025; 93005; 99285

== ENCOUNTER 2017-06-07 05:03 | Emergency (ER) | payer MEDICAID ==
[~2017-06-07] VITALS: Ht 175.3 cm; Wt 64.3 kg
[2017-06-07 06:16] VITALS: BP 137/81
== END 2017-06-07 06:36 | disposition home or self-care (01) ==
LOC: ED 05:32
DX: S70.311A Abrasion, right thigh, initial encounter (principal); F41.1 Generalized anxiety disorder; Z76.0 Encounter for issue of repeat prescription; I10 Essential (primary) hypertension; K21.9 Gastro-esophageal reflux disease without esophagitis; X58.XXXA Exposure to other specified factors, initial encounter; Y93.89 Activity, other specified; Y92.89 Other specified places as the place of occurrence of the external cause; Y99.8 Other external cause status
CPT/HCPCS: 99283

== ENCOUNTER 2017-10-07 00:05 | Emergency (ER) | payer OTHER, MEDICAID ==
[~2017-10-07] VITALS: Ht 175.3 cm; Wt 62.7 kg
[~2017-10-07 00:05] MED LIST changes: +NAPR-856 PO; -NAPR500T PO
[2017-10-07] MEDS ORDERED: PROPOFOL 10 MG/ML, 20ML ONE (00:57)
[2017-10-07] MEDS ORDERED: SODIUM CHLORIDE 0.9% 1,000ML IVBOLUS ONE (01:00)
[2017-10-07] MEDS ORDERED: PROPOFOL 10 MG/ML, 20ML IVPush ONE (01:00)
[2017-10-07] MEDS ORDERED: SODIUM CHLORIDE FLUSH 10ML SYR IVF ONE (01:00)
[2017-10-07] MEDS ORDERED: ARIP30TA4 PO (01:03)
[2017-10-07] MEDS ORDERED: HYDR25CA94 PO (01:03)
[2017-10-07] MEDS ORDERED: RANI150T4 PO (01:03)
[2017-10-07] MEDS ORDERED: ASPI-515 PO (01:03)
[2017-10-07] MEDS ORDERED: IBUP-1223 PO (01:03)
[2017-10-07] MEDS ORDERED: CHOL200024 PO (01:03)
[2017-10-07] MEDS ORDERED: METO25TA35 PO (01:03)
[2017-10-07 01:57] VITALS: BP 169/100
== END 2017-10-07 02:01 | disposition home or self-care (01) ==
LOC: ED 00:20
DX: K40.91 Unilateral inguinal hernia, without obstruction or gangrene, recurrent (principal); R10.32 Left lower quadrant pain; F31.9 Bipolar disorder, unspecified; I10 Essential (primary) hypertension; M54.5 Low back pain; M54.2 Cervicalgia; G89.29 Other chronic pain; K21.9 Gastro-esophageal reflux disease without esophagitis; F17.200 Nicotine dependence, unspecified, uncomplicated; Z00.00 Encounter for general adult medical examination without abnormal findings; Z88.2 Allergy status to sulfonamides; Z88.8 Allergy status to other drugs, medicaments and biological substances; Z72.9 Problem related to lifestyle, unspecified; Z88.1 Allergy status to other antibiotic agents
CPT/HCPCS: 96360; 99152; 99285; J2704; J7030

== ENCOUNTER 2020-02-02 17:53 | Observation (INO) | payer MEDICAID, OTHER ==
[~2020-02-02] VITALS: Ht 175.3 cm; Wt 76.2 kg
[~2020-02-02 17:53] MED LIST changes: +ARIP30TA4 PO; +ASPI-515 PO; +CHOL200024 PO; -CLON-365 PO; +CLON1TAB11 PO; -GABA800T2 PO; +GABA800T5 PO; +HYDR25CA94 PO; +IBUP-1223 PO; +METO25TA35 PO; -QUET25TA PO; +QUET25TA7 PO; +RANI150T4 PO
--- NOTE | 2020-02-02 18:02 | NUR ---
PT A&OX4, RESP EVEN & UNLABORED, SPEECH CLEAR. C/O PAIN TO LT SIDE OF PENIS, LT TESTICLE, RADIATING UP LT MEDIAL ABD. INGUINAL HERNIA REPAIR ON 01/25/20 AT [facility]. 3 STERI-STRIPS NOTED ON ABD. BRUISING NOTED TO PENIS & TESTICLE. NO PAIN MED TAKEN TODAY. DENIES PAIN W/ PEEING.
--- NOTE | 2020-02-02 18:11 | NUR ---
PT POOR HISTORIAN REGARDING HIS MEDICATIONS.
--- NOTE | 2020-02-02 18:17 | NUR ---
ALANNAH Haskins, PERSONNEL COORDINATOR BS FOR EXAM
[2020-02-02] MEDS ORDERED: PLEASE ENTER HEIGHT AND WEIGHT MC SCH (18:30)
[2020-02-02] MEDS ORDERED: MORPHINE SULFATE 4 MG/ML, 1ML IVPush PRN (18:30)
[2020-02-02] MEDS ORDERED: SODIUM CHLORIDE FLUSH 10ML SYR IVF ONE (18:30)
[2020-02-02] MEDS ORDERED: ONDANSETRON 2MG/ML, 2ML IVPush ONE (18:30)
[2020-02-02 18:48] LABS: MICROSCOPIC NOT IND
[2020-02-02] MEDS ORDERED: ONDANSETRON 2MG/ML, 2ML ONE (18:51)
[2020-02-02] MEDS ORDERED: MORPHINE SULFATE 4 MG/ML, 1ML ONE ×2 (18:52→19:50)
[2020-02-02] MEDS: MORPHINE SULFATE 4 MG/ML, 1ML IVPush PRN ×3 (18:58→23:45)
[2020-02-02 18:59] LABS: BASOPHILS # (AUTO) 0.03 x10^3/uL (0-0.1); BASOPHILS % (AUTO) 0 % (0-1); EOSINOPHILS # (AUTO) 0.35 x10^3/uL (0-0.4); EOSINOPHILS % (AUTO) 5 % (1-7); LYMPHOCYTES % (AUTO) 22 % (22-44); MD NO; MEAN CORPUSCULAR HEMOGLOBIN 31.1 pg (27.5-34.5); MEAN CORPUSCULAR HGB CONC 33.7 g/dL (33.2-36.2); MEAN CORPUSCULAR VOLUME 92.2 fL (81-97); MEAN PLATELET VOLUME 8.5 fL (7.4-10.4); MONOCYTES # (AUTO) 0.97 x10^3/uL (0.2-0.8); MONOCYTES % (AUTO) 14 % (2-9); NEUTROPHILS # (AUTO) 3.91 x10^3/uL (1.8-6.8); NEUTROPHILS % (AUTO) 58 % (42-75); PLATELET COUNT 240 x10^3/uL (130-400); RED BLOOD COUNT 4.19 x10^6/uL (4.38-5.82); RED CELL DISTRIBUTION WIDTH 14.7 % (9.4-14.8)
[2020-02-02 19:10] LABS: ALANINE AMINOTRANSFERASE 15 U/L (12-78); ALBUMIN 3.5 g/dL (3.4-5.0); ANION GAP 5 mmol/L (5-15); CALCIUM 8.8 mg/dL (8.5-10.1); CHLORIDE 112 mmol/L (98-107); CREATININE 0.83 mg/dL (0.7-1.3)
[2020-02-02 19:12] LABS: ALKALINE PHOSPHATASE 60 U/L (45-117); BILIRUBIN,TOTAL 0.5 mg/dL (0.2-1.0); TOTAL PROTEIN 7.1 g/dL (6.4-8.2)
--- NOTE | 2020-02-02 19:30 | NUR ---
TO CT PER JULIAN
--- NOTE | 2020-02-02 20:00 | NUR ---
SEPSIS WORKSHEET INITIATED; PT DOES NOT CURRENTLY MEET SECTION B CRITERIA
[2020-02-02] MEDS ORDERED: PIPERACILLIN/TAZO/PMX 3.375GM 50 ML IVPB ONE (20:30)
[2020-02-02] MEDS ORDERED: VANCOMYCIN PER PHARMACY MC ONE (20:30)
--- NOTE | 2020-02-02 20:30 | NUR ---
EKG AT BS
[2020-02-02] MEDS ORDERED: PIPERACILLIN/TAZO/PMX 3.375GM 50 ML ONE (20:37)
--- NOTE | 2020-02-02 20:39 | NUR ---
CALLED FLOOR, RECEIVING RN NOT CURRENTLY AVAILABLE BUT WILL CALL BACK.
--- NOTE | 2020-02-02 20:50 | NUR ---
2ND DOSE OF MORPHINE 4MG IV GIVEN PER EMAR. IV SITE PATENT. PT'S PAIN 02/24
--- NOTE | 2020-02-02 20:52 | NUR ---
Nery khan in [facility] - 02/02/20 at 2053 by ROSIE CHELSY RODRIGUEZ, INFUSING AT 100ML/HR VIA PUMP
--- NOTE | 2020-02-02 20:58 | NUR ---
CONSULTED ALANNAH Haskins, RACHELL RE: COVID TEST. PER WILLY JAFFE TEST TO BE CANCELLED.
[2020-02-02] MEDS ORDERED: VANCOMYCIN 1,500 MG in SODIUM CHLORIDE 0.9% 250 ML IV ONE (21:00)
--- NOTE | 2020-02-02 21:01 | NUR ---
DR MACIEL AT BS.
--- NOTE | 2020-02-02 21:03 | NUR ---
GAVIN CX DRAWN. VO DR MACIEL: CANCEL MATTHEW.
--- NOTE | 2020-02-02 21:05 | NUR ---
BOONE GRAIN SPOUTER HOSPITALIST, AT BS
[2020-02-02] MEDS ORDERED: BISACODYL 10 MG SUPP PR PRN (21:30)
[2020-02-02] MEDS ORDERED: POLYETHYLENE GLYCOL 17 GM PACKET PO PRN (21:30)
[2020-02-02] MEDS ORDERED: ONDANSETRON 2MG/ML, 2ML IVPush PRN (21:30)
[2020-02-02] MEDS ORDERED: PROMETHAZINE 25 MG/ML, 1ML IM PRN (21:30)
[2020-02-02] MEDS ORDERED: hydrALAzine 20 MG/ML, 1ML IVPush PRN (21:30)
[2020-02-02 21:48] VITALS: BP 117/79
[2020-02-02] MEDS ORDERED: OMNIPAQUE 350 MG/ML, 100ML BOTTLE ONE (22:29)
[2020-02-02] MEDS: NICOTINE 21 MG/24 HR PATCH.TD24 TD SCH (22:42)
[2020-02-03] MEDS ORDERED: ALBUTEROL HFA 90 MCG/SPRAY INH PRN
[2020-02-03 00:20] VITALS: BP 111/75
[2020-02-03] MEDS: OXYcodone/APAP 5/325MG TABLET PO PRN ×2 (01:35→07:41)
[2020-02-03] MEDS: MORPHINE SULFATE 4 MG/ML, 1ML IVPush PRN ×2 (03:54→08:17)
[2020-02-03 05:38] LABS: BASOPHILS # (AUTO) 0.03 x10^3/uL (0-0.1); BASOPHILS % (AUTO) 1 % (0-1); EOSINOPHILS # (AUTO) 0.36 x10^3/uL (0-0.4); EOSINOPHILS % (AUTO) 6 % (1-7); LYMPHOCYTES # (AUTO) 1.52 x10^3/uL (1-3.4); LYMPHOCYTES % (AUTO) 25 % (22-44); MD NO; MEAN CORPUSCULAR HEMOGLOBIN 30.3 pg (27.5-34.5); MEAN CORPUSCULAR HGB CONC 32.8 g/dL (33.2-36.2); MEAN CORPUSCULAR VOLUME 92.3 fL (81-97); MEAN PLATELET VOLUME 8.4 fL (7.4-10.4); MONOCYTES # (AUTO) 0.96 x10^3/uL (0.2-0.8); MONOCYTES % (AUTO) 16 % (2-9); NEUTROPHILS # (AUTO) 3.31 x10^3/uL (1.8-6.8); NEUTROPHILS % (AUTO) 54 % (42-75); PLATELET COUNT 238 x10^3/uL (130-400); RED BLOOD COUNT 4.38 x10^6/uL (4.38-5.82); RED CELL DISTRIBUTION WIDTH 14.5 % (9.4-14.8)
[2020-02-03 05:51] LABS: ANION GAP 6 mmol/L (5-15); CALCIUM 9.3 mg/dL (8.5-10.1); CHLORIDE 107 mmol/L (98-107)
[2020-02-03 05:53] LABS: CREATININE 0.77 mg/dL (0.7-1.3)
[2020-02-03 07:01] VITALS: BP 139/83
[2020-02-03] MEDS: ARIPIPRAZOLE 15 MG TABLET PO SCH (07:40)
[2020-02-03] MEDS: SENNA/DOCUSATE TABLET PO SCH (07:41)
[2020-02-03] MEDS: METOPROLOL TARTRATE 25 MG TAB PO SCH (07:41)
[2020-02-03] MEDS: LISINOPRIL 10 MG TABLET PO SCH (07:41)
[2020-02-03] MEDS: ASPIRIN 81 MG TABLET EC PO SCH (07:41)
[2020-02-03 13:11] VITALS: BP 107/67
[2020-02-03 15:51] LABS: HCT (SEDRATE) 39.3 % (39.2-51.8)
[2020-02-03 18:55] VITALS: BP 112/69
[2020-02-04] MEDS: NICOTINE 21 MG/24 HR PATCH.TD24 TD SCH (00:05)
[2020-02-04] MEDS: ACETAMINOPHEN 325 MG TABLET PO PRN ×2 (00:05→09:16)
[2020-02-04 00:47] VITALS: BP 120/74
[2020-02-04 05:47] LABS: BASOPHILS # (AUTO) 0.02 x10^3/uL (0-0.1); BASOPHILS % (AUTO) 0 % (0-1); EOSINOPHILS # (AUTO) 0.23 x10^3/uL (0-0.4); EOSINOPHILS % (AUTO) 3 % (1-7); LYMPHOCYTES # (AUTO) 0.96 x10^3/uL (1-3.4); LYMPHOCYTES % (AUTO) 12 % (22-44); MD NO; MEAN CORPUSCULAR HEMOGLOBIN 30.3 pg (27.5-34.5); MEAN CORPUSCULAR HGB CONC 32.5 g/dL (33.2-36.2); MEAN CORPUSCULAR VOLUME 93.2 fL (81-97); MEAN PLATELET VOLUME 8.3 fL (7.4-10.4); MONOCYTES # (AUTO) 0.84 x10^3/uL (0.2-0.8); MONOCYTES % (AUTO) 10 % (2-9); NEUTROPHILS % (AUTO) 75 % (42-75); PLATELET COUNT 274 x10^3/uL (130-400); RED BLOOD COUNT 4.28 x10^6/uL (4.38-5.82); RED CELL DISTRIBUTION WIDTH 14.4 % (9.4-14.8)
[2020-02-04 05:49] LABS: ANION GAP 6 mmol/L (5-15); CHLORIDE 103 mmol/L (98-107)
[2020-02-04 07:45] VITALS: BP 144/82
[2020-02-04] MEDS: LISINOPRIL 10 MG TABLET PO SCH (08:42)
[2020-02-04] MEDS: ASPIRIN 81 MG TABLET EC PO SCH (08:42)
[2020-02-04] MEDS: ARIPIPRAZOLE 15 MG TABLET PO SCH (08:42)
[2020-02-04] MEDS: METOPROLOL TARTRATE 25 MG TAB PO SCH (08:42)
[2020-02-04] MEDS: SENNA/DOCUSATE TABLET PO SCH (08:43)
[2020-02-04] MEDS ORDERED: ACET325T26 PO (10:58)
== END 2020-02-04 12:14 | disposition home or self-care (01) ==
LOC: ED 17:55 → INTOOBSV 20:08 → EDIP 20:08 → 3N 21:10 → DCLOUNGE 02-04 12:06
PROVIDERS: ADMIT Internal Medicine; ATTEND Hospitalist
DX: N50.89 Other specified disorders of the male genital organs (principal); K91.871 Postprocedural hematoma of a digestive system organ or structure following other procedure; S30.22XA Contusion of scrotum and testes, initial encounter; J98.11 Atelectasis; D64.9 Anemia, unspecified; F31.9 Bipolar disorder, unspecified; I10 Essential (primary) hypertension; K21.9 Gastro-esophageal reflux disease without esophagitis; F17.200 Nicotine dependence, unspecified, uncomplicated; F12.90 Cannabis use, unspecified, uncomplicated; K57.92 Diverticulitis of intestine, part unspecified, without perforation or abscess without bleeding; K63.0 Abscess of intestine; Z79.899 Other long term (current) drug therapy; Z79.82 Long term (current) use of aspirin; X58.XXXA Exposure to other specified factors, initial encounter; Y93.89 Activity, other specified; Y92.89 Other specified places as the place of occurrence of the external cause
CPT/HCPCS: 36415; 71045; 74177; 80048; 80053; 81003; 82962; 83605; 85025; 85651; 86140; 87040; 93005; 96365; 96367; 96375; 96376; 99285; G0378; J2270; J2405; J2543; J3370; J7050; Q9967